=== PATIENT | male | born 1960 | race Caucasian/White ===

== ENCOUNTER → 2018-01-21 | Outpatient (CLI) | payer OTHER, MEDICAID ==
[~2018-01-21] MED LIST: ATOR20TA PO; BACL-19 PO; BACLOFEN PAIN PUMP; CARV3.122 PO; DIGO250T6 PO; DOCU-131 PO; DOCU100C24 PO; ENOX80SY4 SQ; FURO20TA3 PO; GABA300C10 PO; HYDR-3245 PO; LISI5TAB7 PO; PARO20TA4 PO; POTA20TA14 PO; SPIR25TA3 PO; TAMS-11 PO; VENL25TA PO; WARF4TAB PO
== END | disposition home or self-care (01) ==
LOC: RAD 12:43
PROVIDERS: ATTEND Internal Medicine
DX: K43.9 Ventral hernia without obstruction or gangrene (principal)
CPT/HCPCS: 74176

== ENCOUNTER 2018-02-27 18:13 | Emergency (ER) | payer OTHER, MEDICAID ==
[~2018-02-27] VITALS: Ht 167.6 cm; Wt 100.0 kg
[~2018-02-27 18:13] MED LIST changes: +RIVA10TA PO; +TAMS0.4C2 PO
[2018-02-27 19:01] LABS: BASOPHILS # (AUTO) 0.04 x10^3/uL (0-0.1); BASOPHILS % (AUTO) 1 % (0-1); EOSINOPHILS % (AUTO) 1 % (1-7); LYMPHOCYTES # (AUTO) 1.14 x10^3/uL (1-3.4); LYMPHOCYTES % (AUTO) 14 % (22-44); MD NO; MEAN CORPUSCULAR HEMOGLOBIN 32.7 pg (27.5-34.5); MEAN CORPUSCULAR HGB CONC 34.7 g/dL (33.2-36.2); MEAN PLATELET VOLUME 8.9 fL (7.4-10.4); MONOCYTES # (AUTO) 0.86 x10^3/uL (0.2-0.8); MONOCYTES % (AUTO) 11 % (2-9); NEUTROPHILS # (AUTO) 5.92 x10^3/uL (1.8-6.8); NEUTROPHILS % (AUTO) 74 % (42-75); PLATELET COUNT 216 x10^3/uL (130-400); RED BLOOD COUNT 3.52 x10^6/uL (4.38-5.82); RED CELL DISTRIBUTION WIDTH 14.2 % (9.4-14.8)
[2018-02-27 19:12] LABS: ALANINE AMINOTRANSFERASE 97 U/L (12-78); ANION GAP 5 mmol/L (5-15); CHLORIDE 104 mmol/L (98-107)
[2018-02-27 19:14] LABS: ALKALINE PHOSPHATASE 446 U/L (45-117); TOTAL PROTEIN 6.5 g/dL (6.4-8.2)
[2018-02-27 19:53] VITALS: BP 129/72
== END 2018-02-27 21:22 | disposition home or self-care (01) ==
LOC: ED 20:36
DX: G89.18 Other acute postprocedural pain (principal); R10.84 Generalized abdominal pain; I10 Essential (primary) hypertension; E78.5 Hyperlipidemia, unspecified; Z86.73 Personal history of transient ischemic attack (TIA), and cerebral infarction without residual deficits; Z95.0 Presence of cardiac pacemaker; Z86.711 Personal history of pulmonary embolism
CPT/HCPCS: 36415; 74021; 80053; 83690; 85025; 99285